=== PATIENT | female | born 1940 | race Caucasian/White ===

== ENCOUNTER 2017-01-22 08:08 | Outpatient (CLI) | payer MEDICARE, OTHER | END 2017-01-22 08:09 | disposition home or self-care (01) | LOC: NAVSJIPCSP 08:08 | PROVIDERS: ATTEND Internal Medicine | DX: E78.5 Hyperlipidemia, unspecified (principal); E03.9 Hypothyroidism, unspecified | CPT/HCPCS: 36415; 80061; 84443 ==